=== PATIENT | female | born 1980 | race Caucasian/White ===

== ENCOUNTER 2022-06-28 11:44 | Emergency (ER) | payer BC, SELFPAY ==
--- NOTE | ~2022-06-28 | XR_ITS ---
Clinical Indication: Cough PA and lateral views of the chest: Comparison: None Findings: The lungs are clear, without evidence of focal consolidation or pleural effusion. Cardiome diastinal silhouette is within normal limits. Bones and soft tissues are unremarkable. Impression: Normal chest. Reviewed, dictated and finalized at location . Impression: Normal chest.
[2022-06-28 11:54] VITALS: BP 152/97; PULSE 70; RESP 16; TEMP 36.1; O2SAT 100
--- NOTE | 2022-06-28 12:16 | ED.GENADULT ---
HPI - General Adult General Chief complaint: Upper Respiratory Infection Stated complaint: Cold Symptoms Source: patient Mode of arrival: ambulatory Limitations: no limitations History of Present Illness HPI narrative: Patient presents for evaluation of upper respiratory symptoms. Symptom onset 4 days ago. Symptoms include sinus congestion, clear rhinorrhea, productive cough of yellow sputum, wheezing, diarrhea, body aches. No nausea, vomiting, shortness of breath. Her daughter recently had similar symptoms and was diagnosed with pneumonia. Patient does not smoke. She tried taking DayQuil for her symptoms. Related Data Home Medications Medication Instructions Recorded Confirmed citalopram 40 mg tablet mg 06/28/22 losartan 100 tablet 06/28/22 mg-hydrochlorothiazide 12.5 mg tablet norethindrone (contraceptive) 0.35 mg 06/28/22 mg tablet omeprazole 20 mg capsule,delayed mg 06/28/22 release Allergies Allergy/AdvReac Type Severity Reaction Status Date / Time Sulfa (Sulfonamide Allergy Unknown Verified 10/08/16 12:35 Antibiotics) Review of Systems Review of Systems: CONSTITUTIONAL: Denies fever, chills, or sweats. EYES: Denies visual changes, redness, or discharge. ENT: Reports sinus congestion clear rhinorrhea. CARDIOVASCULAR: Denies chest pain, palpitations, or edema. RESPIRATORY: Reports productive cough of yellow sputum and wheezing. Denies shortness of breath. GASTROINTESTINAL: Reports diarrhea. denies abdominal pain, nausea, or vomiting GENITOURINARY: Denies dysuria or hematuria. SKIN: Denies rash or itching. MUSCULOSKELETAL: Denies back pain, joint pain, or myalgia. NEUROLOGIC: Denies headache, numbness, dizziness, or weakness. PSYCHIATRIC: Denies anxiety or depression. [facility] Past Medical History Medical History (Updated 06/28/22 @ 12:59 by JESSE Burnham, FAUSTINO) No pertinent past medical history Surgical History Surgical History No pertinent past surgical history Family History Family History Mother Family history non-contributory Social History Social History Smoking status: Never smoker Substance use: never Living arrangements: with family Gender identity (if verbalized by the patient): Female Sexual Orientation (if Verbalized by the Patient): Straight or Heterosexual Spiritual care concerns: No Exam Narrative: GENERAL: Well-appearing, well-nourished, and in no acute distress. HEAD: Normocephalic, atraumatic. EYES: PERRLA and EOMI. ENT: Nares clear, no rhinorrhea or epistaxis. Mucous membranes moist. Oropharynx without tonsillar hypertrophy exudate or other lesions. Bilateral TMs pearly pena nonbulging NECK: Supple. No adenopathy or masses. No carotid bruits or JVD CHEST: Rales noted in posterior lung cisneros bilaterally HEART: Regular rate and rhythm. No murmur heard. Normal peripheral pulses. ABDOMEN: Soft, nontender, nondistended, normal active bowel sounds. EXTREMITIES: Normal range of motion. No edema. SKIN: Warm, dry, no rash. NEURO: No focal deficits. Alert and oriented x3. PSYCH: Normal mood and affect. Course Course Emergency Course: THIS IS A 41-YEAR-OLD FEMALE WHO PRESENTED FOR EVALUATION OF SICK SYMPTOMS. COVID, INFLUENZA, CHEST X-RAY NEGATIVE. EXAM WAS CONSISTENT WITH VIRAL URI. SHE DID HAVE SOME WHEEZING SO WILL BE DISCHARGED WITH PREDNISONE. MUCINEX DM [id number] FOR SYMPTOM MANAGEMENT. INCREASE HYDRATION. FOLLOW UP WITH PRIMARY PROVIDER. GO TO THE ER FOR WORSENING SYMPTOMS. PATIENT IN AGREEMENT WITH PLAN OF CARE Level of Care: Express Care Visit Vital Signs Vital signs: Vital Signs Temperature 36.1 C L 06/28/22 11:54 Pulse Rate 70 06/28/22 11:54 Respiratory Rate 16 06/28/22 11:54 Blood Pressure 152/97 H 06/28/22 11:54
== END 2022-06-28 13:03 | disposition home or self-care (01) ==
PROVIDERS: Emergency Provider Nurse Practitioner; PCP Family Medicine
DX: J06.9 Acute upper respiratory infection, unspecified (principal); Z20.822 Contact with and (suspected) exposure to COVID-19
CPT/HCPCS: 71046; 87426; 87804; 99203; C9803; G0463

== ENCOUNTER 2023-04-08 13:51 | Emergency (ER) | payer BC, SELFPAY ==
[2023-04-08 13:56] VITALS: BP 145/113; PULSE 80; RESP 16; TEMP 36.6; O2SAT 98
[2023-04-08 14:06] VITALS: BP 145/113; PULSE 80; RESP 16; TEMP 36.6; O2SAT 98
--- NOTE | 2023-04-08 15:10 | ED.GENADULT ---
HPI - General Adult General Chief complaint: Extremity Problem,Nontraumatic Stated complaint: Left Foot Pain Time Seen by Provider: 04/08/23 15:00 Source: patient, RN notes reviewed and old records reviewed Mode of arrival: ambulatory Limitations: no limitations History of Present Illness HPI narrative: 42-year-old female presents to express care with complaints of having left heel pain since yesterday morning after arising from bed. Patient reports that she has some tenderness under the laft lateral calcaneus radiating posteriorly also. Patient reports that she has had history of gout in the past and had some Indomethacin and prednisone at home and did take doses. Patient reports increased pain with ambulation, is able to flex and extend foot with no difficulty, no acute warmth or any redness to heel area or ankle. Patient denies any known injury to left foot or ankle. MD complaint: left heel and lateral ankle Onset (ago): day(s) (since yesterday) Severity scale (1-10): 2 Treatments prior to arrival: NSAID and other (prednisone) Related Data Home Medications Medication Instructions Recorded Confirmed citalopram 40 mg tablet 40 mg PO DAILY 06/28/22 04/08/23 losartan 100 1 tablet PO DAILY 06/28/22 04/08/23 mg-hydrochlorothiazide 12.5 mg tablet norethindrone (contraceptive) 0.35 0.35 mg PO DAILY 06/28/22 04/08/23 mg tablet omeprazole 20 mg capsule,delayed 20 mg PO DAILY 06/28/22 04/08/23 release Allergies Allergy/AdvReac Type Severity Reaction Status Date / Time Sulfa (Sulfonamide Allergy Intermediate Rash Verified 04/08/23 14:06 Antibiotics) Review of Systems Review of Systems: CONSTITUTIONAL: Denies fever, chills, or sweats. EYES: Denies visual changes, redness, or discharge. ENT: Denies rhinorrhea, congestion, sore throat, or otalgia. CARDIOVASCULAR: Denies chest pain, palpitations, or edema. RESPIRATORY: Denies cough or dyspnea. GASTROINTESTINAL: Denies abdominal pain, nausea, vomiting, or diarrhea. GENITOURINARY: Denies dysuria or hematuria. SKIN: Denies rash or itching. MUSCULOSKELETAL: Denies back pain,positive for left heel pain and lateral left ankle below calcaneus, or myalgia. NEUROLOGIC: Denies headache, numbness, or weakness.l PSYCHIATRIC: Denies anxiety or depression. All systems reviewed & are unremarkable except as noted in HPI and below PMFSH Past Medical History Medical History (Updated 04/10/23 @ 21:38 by Lorraine Beatty NP) GERD (gastroesophageal reflux disease) Gout Hypertension Surgical History Surgical History No pertinent past surgical history Family History Family History Mother Family history non-contributory Social History Social History (Updated 04/10/23 @ 21:32 by Lorraine Beatty NP) Smoking status: Current every day smoker Tobacco type: e-cigarettes/vaping Substance use: never Living arrangements: with family Gender identity (if verbalized by the patient): Female Sexual Orientation (if Verbalized by the Patient): Straight or Heterosexual Spiritual care concerns: No Comments At time of signature, agree with nursing past medical, surgical, social and family history. There is no relevant family history pertinent to the presenting complaint Exam Narrative: GENERAL: Well-appearing, well-nourished, obese,and in no acute distress. HEAD: Normocephalic, atraumatic. EYES: PERRLA and EOMI. ENT: Nares clear, no rhinorrhea or epistaxis. Mucous membranes moist.TM's normal throat pink with no swelling NECK: Supple. no lymphadenopathy CHEST: Clear to auscultation. No respiratory distress.SAO2 98% on room air HEART: Regular rate and rhythm. No murmur heard. Normal peripheral pulses. ABDOMEN: Soft, nontender, nondistended, normal active bowel sounds. EXTREMITIES: Normal range of motion. No edema.Exception noted to patient complaints of l
== END 2023-04-08 15:32 | disposition home or self-care (01) ==
PROVIDERS: Emergency Provider Registered Nurse; PCP Family Medicine
DX: M25.572 Pain in left ankle and joints of left foot (principal); M79.672 Pain in left foot; F17.290 Nicotine dependence, other tobacco product, uncomplicated; K21.9 Gastro-esophageal reflux disease without esophagitis; M10.9 Gout, unspecified; I10 Essential (primary) hypertension
CPT/HCPCS: 99213; G0463

== ENCOUNTER 2024-05-09 11:04 | Emergency (ER) | payer SELFPAY ==
--- NOTE | 2024-05-09 11:08 | ED_ITS ---
HPI - URI/Sore Throat General Chief Complaint: Upper Respiratory Infection Stated Complaint: Fever/Cough/Chest Congestion Time Seen by Provider: 05/09/24 11:08 Source: patient Mode of arrival: ambulatory Limitations: no limitations History of Present Illness HPI Narrative: Patient is a 43-year-old female who presents with 2 days of fever, cough, congestion for 2 days. Taken [id number] medication without relief. Denies any nausea, vomiting, diarrhea. Related Data Home Medications ?Medication ?Instructions ?Recorded ?Confirmed ?Last Taken ?Type citalopram 40 mg tablet 40 mg PO DAILY 06/28/22 05/09/24 Unknown History losartan 100 1 tablet PO DAILY 06/28/22 05/09/24 Unknown History mg-hydrochlorothiazide 12.5 mg tablet norethindrone (contraceptive) 0.35 0.35 mg PO DAILY 06/28/22 04/08/23 Unknown History mg tablet omeprazole 20 mg capsule,delayed 20 mg PO DAILY 06/28/22 05/09/24 Unknown History release allopurinol 100 mg tablet mg 05/09/24 Unknown History Allergies Allergy/AdvReac Type Severity Reaction Status Date / Time Sulfa (Sulfonamide Allergy Intermediate Rash Verified 05/09/24 11:30 Antibiotics) Review of Systems Review of Systems: All systems reviewed & are unremarkable except as noted in HPI and below Constitutional: Constitutional: Denies body ache(s), Denies chills, Denies fatigue, Reports fever(s), Denies headache(s), Denies malaise and Denies weakness Eyes: Eyes: Denies blurry vision, Denies itchy eyes and Denies loss of vision ENT: Denies otalgia, Denies headache(s), Reports nasal congestion, Denies sinus pain and Denies sore throat Cardiovascular: Cardiovascular: Denies chest pain, Denies irregular heart rhythm and Denies dyspnea Respiratory: Respiratory: Reports cough and Denies dyspnea Gastrointestinal: Gastrointestinal: Denies abdominal pain, Denies diarrhea, Denies nausea and Denies vomiting Musculoskeletal: Musculoskeletal: Denies back pain, Denies myalgias and Denies arthralgias Integumentary/Breasts: Skin/Breast: Denies pruritus and Denies rash Neurologic: Denies headache(s), Denies loss of vision and Denies weakness Psychiatric: Psychiatric: Reports no additional psychiatric complaints Endocrine: Endocrine: Denies fatigue Allergic/Immunologic: Allergic/Immunologic: Denies itchy eyes PMFSH Past Medical History Medical History (Updated 05/09/24 @ 11:42 by Jennifer Lepe APRN) GERD (gastroesophageal reflux disease) Gout Hypertension Surgical History Surgical History No pertinent past surgical history Family History Family History Mother Family history non-contributory Social History Social History (Updated 04/10/23 @ 21:32 by Lorraine Beatty NP) Smoking status: Current every day smoker Tobacco type: e-cigarettes/vaping Substance use: never Living arrangements: with family Gender identity (if verbalized by the patient): Female Sexual Orientation (if Verbalized by the Patient): Straight or Heterosexual Spiritual care concerns: No Comments At time of signature, agree with nursing past medical, surgical, social and family history. There is no relevant family history pertinent to the presenting complaint. Exam Const: General: cooperative, healthy appearing, comfortable, no acute distress and well nourished Nutritional Appearance: well nourished Orientation/consciousness: patient oriented x3 Limitations: no limitations HENMT: Head: normal to inspection, normocephalic and atraumatic Ears: hearing grossly normal bilaterally, external ears normal, TM's normal bilaterally, EAC's normal and no periauricular adenopathy Face/Nose/Sinus: Normal external nose present, Abnormal mucous membranes and turbinates present erythematous bilateral and diffuse, normal facial exam, sinuses nontender and face symmetric Face and sinus: normal facial exam, sinuses nontender and face symmetric Mouth: Yes Normal oral and palatal mucosa present, Yes lip normal, Yes tongue normal, Yes Normal salivary glands and ducts present, Yes oropharynx normal and Yes moist mucous membranes Teeth and gingiva: dentition normal Throat: posterior oropharynx normal, tonsils normal and uvula midline Eyes: General: appearance normal, both eyes and all related structures Alignment and Position: alignment normal and position normal Periorbital: periorbital findings normal Eyelids: eyelids normal Pupils: Equal, round and reactive pupils present Neck: Neck: normal visual inspection, full ROM, no lymphadenopathy and supple Chest: Chest palpation & inspection: normal inspection of the chest and normal palpation of entire chest wall Resp: Effort & Inspection: normal respiratory effort, able to speak in complete sentences and Actively coughing wet Auscultation: clear to auscultation bilaterally, no crackles, no rales, rhonchi left upper (clears with cough) and no wheezes Cardio: Rate: regular rate Rhythm: regular rhythm Heart sounds: S1 normal heart sound present and S2 normal heart sound present GI: Inspection: normal to inspection Skin: General skin exam: normal color and no rashes or lesions noted Neuro: General: patient oriented x3 and moves all extremities Cranial nerves: Yes Equal, round and reactive pupils present Speech: normal speech Gait exam (Neuro): Normal gait present Extrem: General: normal to inspection, full ROM and no edema Psych: Appearance: grossly normal and well kempt Mental Status: mental status grossly normal Speech and movement: Normal speech and movement present Affect: normal affect Attitude: cooperative Thought process: Normal thought process present Course Course Emergency Course: Discharge instructions reviewed with patient, as well as provided in writing per nursing staff. The instructions also include specific and strict return/GO TO THE ER as well as f/u information. All questions have been answered, and the patient deny any further questions with discharge and discharge plan. Portions of this record may have been created with voice recognition software Level of Care: Express Care Visit Vital Signs Vital signs: Vital Signs Temperature 36.6 C 05/09/24 11:33 Pulse Rate 87 05/09/24 11:33 Respiratory Rate 16 05/09/24 11:33 Blood Pressure 153/99 H 05/09/24 11:33 Pulse Oximetry 98 05/09/24 11:33 Oxygen Delivery Room Air 05/09/24 11:33 Temperature 36.6 C 05/09/24 11:33 Pulse Rate 87 05/09/24 11:33 Respiratory Rate 16 05/09/24 11:33 Blood Pressure 153/99 H 05/09/24 11:33 Pulse Oximetry 98 05/09/24 11:33 Oxygen Delivery Room Air 05/09/24 11:33 Reviewed MDM - URI/Sore Throat MDM Narrative Medical decision making narrative: Pt well hydrated appearing, in no respiratory distress, hemodynamically stable. Recommend supportive care. The patient is stable at time of discharge the clinical impression was discussed and the patient was given the opportunity to ask questions, which were addressed as completely as possible given the information available at present. Anticipatory guidance and return to care precautions were discussed and the importance of primary care follow-up was stressed and encouraged. The patient voiced understanding of the plan, indications to return, and the need for follow-up. Differential diagnosis considered: Garcia virus, strep pharyngitis, allergic rhinitis, upper respiratory tract infection, sinusitis, rhinosinusitis, nasopharyngitis. viral pharyngitis, otitis media, otitis externa, otitis effusion, foreign body, cerumen impaction, viral syndrome, and influenza.? Exam findings show no acute concerns or changes; patient is non-toxic appearing and is in no distress.? Patient is appropriate for outpatient treatment and follow- up.? Medical Records Attestation: I reviewed the patient's medical records. Lab Data Attestation: I reviewed the patient's lab results. Labs: Lab Results 05/09/24 Range/Units 11:54 POC Influenza A Ag Positive (Negative) POC Influenza B Ag Negative (Negative) POC SARS CoV-2 Ag Negative (Negative) Discharge Plan Discharge Clinical Impression: Influenza Patient Disposition: Home, Self-Care Condition: Stable Instructions: Influenza (ED) Additional Instructions: Your positive for influenza A Use Tessalon Perles as needed for cough. Use inhaler with spacer as needed. Other symptomatic treatments include: -Alternate Tylenol and Motrin per package directions for fever or pain. -Antihistamine medication such as Benadryl at night and Zyrtec/Claritin/Christine during the day can help improve symptoms. -Use Flonase twice a day for 5 days then daily to help reduce the inflammation and dry up your sinuses. -You can also use Sudafed or Mucinex. Be sure to drink plenty of water with these medications at least 8 ounces with every dose and it is important to drink 8 to 10 glasses of water per day. Water is a natural decongestant -Eat and drink things that are easy to swallow, like tea or soup, or popsicles. -Oral rinses such as: Salt water gargles and/or may use topical anesthetic (eg. Chloraseptic spray) or lozenges to relieve dryness or throat pain). -Frequent hand washing or hand crtts is one of the best ways to prevent spread of infection. -Using a vaporizer or humidifier at night will also help thin secretions and help with coughing up phlegm. -Follow up with primary care provider in 3-5 days if condition is not improving - For new or worsening symptoms go directly to the nearest ER Your blood pressure was elevated above 120/80 today at Urgent Care. This puts you above the threshold for follow up visit with a primary care provider. High blood pressure does not usually cause any symptoms, however it may lead to kidney failure, stroke, heart disease just to name a few if untreated . Many people are anxious when seeing a provider or nurse. As a result, you are not di agnosed with hypertension at this time unless your blood pressure is persistently high at two office visits at least one week apart. Some things that can help lower blood pressure are lifestyle modifications, such as light exercise, decreased salt in diet, and weight loss. It is important to follow up with a PCP about this within 1 week. Patient Language: Filipino Prescriptions: New (DME) Aerochamber MV Spacer See Rx Instructions .Route Qty: 1 0RF Rx Instructions: As directed benzonatate 100 mg capsule 100 mg PO BID PRN (Reason: cough) Qty: 14 0RF albuterol sulfate 90 mcg/actuation HFA aerosol inhaler 2 puff inhalation QID PRN (Reason: shortness of breath or wheezing) Qty: 6.7 0RF fluticasone propionate [Flonase Allergy Relief] 50 mcg/actuation spray,suspension 1 spray intranasal DAILY Qty: 16 0RF Rx Instructions: administer into each nostril No Action citalopram 40 mg tablet 40 mg PO DAILY omeprazole 20 mg capsule,delayed release(DR/EC) 20 mg PO DAILY norethindrone (contraceptive) 0.35 mg tablet 0.35 mg PO DAILY losartan-hydrochlorothiazide 100-12.5 mg tablet 1 tablet PO DAILY indomethacin 50 mg capsule 50 mg PO BID Qty: 30 0RF Rx Instructions: administer with food or milk prednisone 20 mg tablet 20 mg PO BID Qty: 10 0RF allopurinol 100 mg tablet Follow-up/Referrals: Hosea Andrew MD [Physician] - 3 Days (Establish care) UNKNOWN,DOCTOR [Primary Care Provider] - Stand Alone Forms: Work/School Release IP Time of Disposition: 11:43
[2024-05-09 11:33] VITALS: BP 153/99; PULSE 87; RESP 16; TEMP 36.6; O2SAT 98
[2024-05-09 11:56] LABS: EDCOVIDSCREEN Negative (Negative); EDINFLUASCREEN Positive (Negative); EDINFLUBSCREEN Negative (Negative)
== END 2024-05-09 12:10 | disposition home or self-care (01) ==
PROVIDERS: Emergency Provider Nurse Practitioner Family
DX: J10.1 Influenza due to other identified influenza virus with other respiratory manifestations (principal); Z20.822 Contact with and (suspected) exposure to COVID-19; F17.290 Nicotine dependence, other tobacco product, uncomplicated; K21.9 Gastro-esophageal reflux disease without esophagitis; I10 Essential (primary) hypertension; M10.9 Gout, unspecified
CPT/HCPCS: 87426; 87804; 99213; G0463

== ENCOUNTER 2024-12-24 12:42 | Emergency (ER) | payer BC, SELFPAY ==
[2024-12-24 12:52] VITALS: BP 130/93; PULSE 88; RESP 18; TEMP 36.5; O2SAT 99
[2024-12-24 13:06] LABS: EDSTREPNEGPOS1 Negative (Negative)
[2024-12-24 13:15] LABS: EDCOVIDSCREEN Negative (Negative); EDINFLUASCREEN Negative (Negative); EDINFLUBSCREEN Negative (Negative)
--- NOTE | 2024-12-24 13:40 | ED.GENADULT ---
HPI - General Adult General Chief complaint: Upper Respiratory Infection Stated complaint: Sore Throat/Cough Source: patient Mode of arrival: ambulatory Limitations: no limitations History of Present Illness HPI narrative: Patient presents for evaluation of sick symptoms for last 4 days. Symptoms include sinus congestion, headache, generalized body aches, sore throat. No fever, chills, nausea, vomiting. No recent sick contacts to her knowledge. She is not taking any medication to assist with her symptoms. She does vape. Related Data Home Medications ?Medication ?Instructions ?Recorded ?Confirmed ?Last Taken ?Type citalopram 40 mg tablet 40 mg PO DAILY 06/28/22 05/09/24 Unknown History losartan 100 1 tablet PO DAILY 06/28/22 05/09/24 Unknown History mg-hydrochlorothiazide 12.5 mg tablet norethindrone (contraceptive) 0.35 0.35 mg PO DAILY 06/28/22 04/08/23 Unknown History mg tablet omeprazole 20 mg capsule,delayed 20 mg PO DAILY 06/28/22 05/09/24 Unknown History release allopurinol 100 mg tablet mg 05/09/24 Unknown History Allergies Allergy/AdvReac Type Severity Reaction Status Date / Time Sulfa (Sulfonamide Allergy Intermediate Rash Verified 12/24/24 12:54 Antibiotics) Review of Systems Review of Systems: CONSTITUTIONAL: Denies fever, chills, or sweats. EYES: Denies visual changes, redness, or discharge. ENT: Reports sinus congestion, nasal drainage and sore throat CARDIOVASCULAR: Denies chest pain, palpitations, or edema. RESPIRATORY: Denies cough or dyspnea. GASTROINTESTINAL: Denies abdominal pain, nausea, vomiting, or diarrhea. GENITOURINARY: Denies dysuria or hematuria. SKIN: Denies rash or itching. MUSCULOSKELETAL: Reports generalized body aches NEUROLOGIC: Reports headache. Denies numbness, dizziness, or weakness. PSYCHIATRIC: Denies anxiety or depression. [facility] Past Medical History Medical History GERD (gastroesophageal reflux disease) Gout Hypertension Surgical History Surgical History No pertinent past surgical history Family History Family History Mother Family history non-contributory Social History Social History Smoking status: Current every day smoker Tobacco type: e-cigarettes/vaping Substance use: never Living arrangements: with family Gender identity (if verbalized by the patient): Female Sexual Orientation (if Verbalized by the Patient): Straight or Heterosexual Spiritual care concerns: No Exam Narrative: GENERAL: Well-appearing, well-nourished, and in no acute distress. HEAD: Normocephalic, atraumatic. EYES: PERRLA and EOMI. ENT: Nares clear, no rhinorrhea or epistaxis. Mucous membranes moist. Oropharynx without tonsillar hypertrophy exudate or other lesions. Bilateral TMs pearly pena nonbulging NECK: Supple. No adenopathy or masses. No carotid bruits or JVD CHEST: Clear to auscultation. No respiratory distress. No wheezes rales or rhonchi HEART: Regular rate and rhythm. No murmur heard. Normal peripheral pulses. ABDOMEN: Soft, nontender, nondistended, normal active bowel sounds. EXTREMITIES: Normal range of motion. No edema. SKIN: Warm, dry, no rash. NEURO: No focal deficits. Alert and oriented x3. PSYCH: Normal mood and affect. Course Course Emergency Course: This is a 44-year-old female who presented for evaluation of sick symptoms. COVID, flu, strep were all negative. Will send throat culture. Through shared decision making opted proceed with Augmentin. Increase hydration. [id number] agents for symptom management. Follow up with primary provider. Go to the ER for worsening symptoms. Patient in agreement with plan of care. Level of Care: Express Care Visit Vital Signs Vital signs: Vital Signs Temperature 36.5 C 12/24/24 12:52 Pulse Rate 88 12/24/24 12:52 Respiratory Rate 18 12/24/24 12:52 Blood Pressure 130/93 H 12/24/24 12:52 Pulse Oximetry 99 12/24/24 12:52 Oxygen Delivery Room Air 12/24/24 12:52 Temperature 36.5 C 12/24/24 12:52 Pulse Rate 88 12/24/24 12:52 Respiratory Rate 18 12/24/24 12:52 Blood Pressure 130/93 H 12/24/24 12:52 Pulse Oximetry 99 12/24/24 12:52 Oxygen Delivery Room Air 12/24/24 12:52 Medical Decision Making Vital Signs Vital Signs: Vital Signs Temperature 36.5 C 12/24/24 12:52 Pulse Rate 88 12/24/24 12:52 Respiratory Rate 18 12/24/24 12:52 Blood Pressure 130/93 H 12/24/24 12:52 Pulse Oximetry 99 12/24/24 12:52 Oxygen Delivery Room Air 12/24/24 12:52 Temperature 36.5 C 12/24/24 12:52 Pulse Rate 88 12/24/24 12:52 Respiratory Rate 18 12/24/24 12:52 Blood Pressure 130/93 H 12/24/24 12:52 Pulse Oximetry 99 12/24/24 12:52 Oxygen Delivery Room Air 12/24/24 12:52 Lab Data Labs: Lab Results 12/24/24 12/24/24 Range/Units 13:04 13:14 POC Influenza A Ag Negative (Negative) POC Influenza B Ag Negative (Negative) POC SARS CoV-2 Ag Negative (Negative) POC Grp A Strep Screen Negative (Negative) Discharge Plan Discharge Clinical Impression: Pharyngitis Patient Disposition: Home Condition: Stable Instructions: Antibiotic Form, Pharyngitis (ED) Patient Language: Burmese Prescriptions: New amoxicillin-pot clavulanate 875-125 mg tablet 1 tablet PO Q12H Qty: 20 0RF No Action citalopram 40 mg tablet 40 mg PO DAILY omeprazole 20 mg capsule,delayed release(DR/EC) 20 mg PO DAILY norethindrone (contraceptive) 0.35 mg tablet 0.35 mg PO DAILY losartan-hydrochlorothiazide 100-12.5 mg tablet 1 tablet PO DAILY allopurinol 100 mg tablet Follow-up/Referrals: Cinda Atkinson, RN [Primary Care Provider, Nursing] Stand Alone Forms: Work/School Release IP Time of Disposition: 13:12
--- OUTSIDE RECORDS SUMMARY | 2024-12-24 14:02 | XMS_ITS | Encounter Summary ---
Author Organization [facility] Address [address] [address] Phone Care Team Providers Care Laboratory Technology Teacher Name Role Phone Cinda Atkinson REGISTERED RESPIRATORY TECHNICIAN, WEB SIZER Primary Care Provider + Reason for Visit * Reason Comments Medication Refill Encounter Details Date Type Department Care Team (Late st Contact Info) Description 12/21/2024 Refill [facility] [address] [place] [address] Cinda Atkinson, REGISTERED RESPIRATORY TECHNICIAN, WEB SIZER [address] [place] [address] Medication Refill Social History Tobacco Use Types Packs/Day Years Used Date Smoking Tobacco: Never Smokeless Tobacco: Never Alcohol Use Standard Drinks/Week Comments Yes 0 (1 standard drink = 0.6 oz pur e alcohol) PHQ-2 Answer Date Recorded Total Score - Questions 1-9 0 08/0 11/2021 Education Answer Date Recorded What is the highest level of school you have completed or the highest degree you have received? Associate degree: academic program 05/23/2022 Sexually Active Control Partners Comments Yes Comments No Sex and Gender Information Value Date Recorded Sex Assigned at Female 04/25/2023 3:59 PM FURNACE BUILDER Legal Sex Female 5:41 PM CDT Gender Identity Female 04/25/2023 3:59 PM FURNACE BUILDER Sexual Orientation Not on file documented as of this encounter Miscellaneous Notes * Telephone Encounter - Magaly Mcqueen RN - 12/23/2024 8:35 AM CDT Medication failed the protocol, provider to review and approve the medication order if appropriate. Requested Prescriptions Pending Prescriptions Disp Refills citalopram (CeleXA) 40 MG Tablet [Pharmacy Med Name: CITALOPRAM 40MG TABLETS] 90 Tablet 0 Sig: Take 1 Tablet by mouth daily. Citalopram (Celexa) (6 Month Refill Only) Protocol Failed - 12/23/2024 8:35 AM Failed - Visit with relevant provider in past 6 months or upcoming 90 days Recent Visits No visits were found meeting these conditions. Showing recent visits within past 182 days and meeting all other requirements Future Appointments No visits were found meeting these conditions. Showing future appointments within next 90 days and meeting all other requirements Failed - Has an encounter in the past 6 months with a depression, anxiety, adjustment disorder, OCD, or PTSD visit diagnosis Passed - No test in the past 12 months or most recent test was negative Passed - No active on record Passed - Citalopram dose is less than or equal to 40mg / day Passed - Patient has established therapy with Citalopram for at least 6 months documented in this encounter Plan of Treatment Not on file documented as of this encounter Visit Diagnoses Diagnosis Anxiety Anxiety state, unspecified documented in this encounter Additional Health Concerns Assessment Noted Time PHQ-9 Depression Total Score: 1 04/29/19 21 12:00 PM FURNACE BUILDER documented as of this encounter Care Teams Laboratory Technology Teacher Relationship Specialty Start Date End Date Cinda Atkinson, REGISTERED RESPIRATORY TECHNICIAN, WEB SIZER [address] [place] [address] PCP - General Advanced Practice Nurse 06/27/23 documented as of this encounter
--- OUTSIDE RECORDS SUMMARY | 2024-12-24 14:02 | XMS_ITS | Encounter Summary ---
Author Organization [facility] Address [address] [place] [address] Phone Care Team Providers Care Diffuser Operator Name Role Phone Ladi Love MD Primary Care Provider [phone] Cinda Atkinson APRN, CIGARETTE VENDOR Primary Care Provider + Reason for Visit * Reason Comments Medication Refill Encounter Details Date Type Department Care Team (Late st Contact Info) Description 11/14/2022 Refill [facility] Family Medicine [facility] [address] [place] [address] [place] [address] [place] [address] Medication Refill Social History Tobacco Use Types Packs/Day Years Used Date Smoking Tobacco: Never Smokeless Tobacco: Never Alcohol Use Standard Drinks/Week Comments Yes 0 (1 standard drink = 0.6 oz pur e alcohol) PHQ-2 Answer Date Recorded Total Score - Questions 1-9 0 11/2021 Education Answer Date Recorded What is the highest level of school you have completed or the highest degree you have received? Associate degree: academic program 05/23/2022 Sexually Active Control Partners Comments Yes Comments No Sex and Gender Information Value Date Recorded Sex Assigned at Female 04/25/2023 3:59 PM NUCLEAR REACTOR TECHNICIAN Legal Sex Female 5:41 PM CDT Gender Identity Female 04/25/2023 3:59 PM NUCLEAR REACTOR TECHNICIAN Sexual Orientation Not on file documented as of this encounter Miscellaneous Notes * Telephone Encounter - Magaly Mcqueen RN - 11/14/2022 5:38 PM CDT Medication warning Per nursing clinical judgement, provider to review and approve the medication(s) order(s) if appropriate. Requested Prescriptions Pending Prescriptions Disp Refills citalopram (CeleXA) 40 MG Tablet [Pharmacy Med Name: CITALOPRAM 40MG TABLETS] 30 Tablet 5 Sig: TAKE 1 TABLET BY MOUTH DAILY Citalopram (Celexa) (6 Month Refill Only) Protocol Passed - 11/14/2022 11:42 AM Passed - No test in the past 12 months or most recent test was negative Passed - No active on record Passed - Citalopram dose is less than or equal to 40mg / day Passed - Visit with relevant provider in past 6 months or upcoming 90 days Recent Visits Date Type Provider Dept 09/21/22 Office Visit Akin Enrique APRN, [facility] 05/24/22 Office Visit [facility]adi [facility] Showing recent visits within past 182 days and meeting all other requirements Future Appointments No visits were found meeting these conditions. Showing future appointments within next 90 days and meeting all other requirements Passed - Patient has established therapy with Citalopram for at least 6 months Passed - Has an encounter in the past 6 months with a depression, anxiety, adjustment disorder, OCD, or PTSD visit diagnosis documented in this encounter Plan of Treatment Not on file documented as of this encounter Visit Diagnoses Not on filedocumented in this encounter Additional Health Concerns Assessment Noted Time PHQ-9 Depression Total Score: 1 04/29/19 21 12:00 PM NUCLEAR REACTOR TECHNICIAN documented as of this encounter Care Teams Diffuser Operator Relationship Specialty Start Date End Date Ladi Love MD PCP - General Family Medicine 10/15/15 06/26/23 Cinda Atkinson APRN, CIGARETTE VENDOR [address] [place] [address] PCP - General Advanced Practice Nurse 06/27/23 documented as of this encounter
--- OUTSIDE RECORDS SUMMARY | 2024-12-24 14:02 | XMS_ITS | Encounter Summary ---
Author Organization [facility] Address [address] [place] [address] Phone Care Team Providers Care Medical Service Representative Name Role Phone Cinda Atkinson DENTAL SALES REPRESENTATIVE, ARTICULATION OFFICER Primary Care Provider + Reason for Visit * Reason Comments Medication Refill Encounter Details Date Type Department Care Team (Late st Contact Info) Description 07/05/2024 Refill [facility] [address] [place] [address] Cinda Atkinson, DENTAL SALES REPRESENTATIVE, ARTICULATION OFFICER [address] [place] [address] Medication Refill Social History Tobacco Use Types [...] Sex Assigned at Female 04/25/2023 3:59 PM PERSONAL LINES AGENT Legal Sex Female 5:41 PM CDT Gender Identity Female 04/25/2023 3:59 PM PERSONAL LINES AGENT Sexual Orientation Not on file documented as of this encounter Plan of Treatment Not on file documented as of this encounter Visit Diagnoses Diagnosis Gout of multiple sites, unspecified cause, unspecified chronicity documented in this encounter Additional Health Concerns Assessment Noted Time PHQ-9 Depression Total Score: 1 04/29/19 21 12:00 PM PERSONAL LINES AGENT documented as of this encounter Care Teams Medical Service Representative Relationship Specialty Start Date End Date Cinda Atkinson, DENTAL SALES REPRESENTATIVE, ARTICULATION OFFICER [address] [place] [address] PCP - General Advanced Practice Nurse 06/27/23 documented as of this encounter
--- OUTSIDE RECORDS SUMMARY | 2024-12-24 14:02 | XMS_ITS | Encounter Summary ---
Author Organization [facility] Address [address] [place] [address] Phone Care Team Providers Care Loss Prevention Research Engineer Name Role Phone Cinda Atkinson ROOM SERVER, CHEMICAL PUMPER Primary Care Provider + Reason for Visit * Reason Comments Medication Refill Encounter Details Date Type Department Care Team (Late st Contact Info) Description 01/25/2024 Refill [facility] - Family Medicine - [place] [address] [place] [address] Cinda Atkinson, ROOM SERVER, CHEMICAL PUMPER [address] [place] [address] Medication Refill Social History Tobacco Use Types [...] Sex Assigned at Female 04/25/2023 3:59 PM PLATE WASHER Legal Sex Female 5:41 PM CDT Gender Identity Female 04/25/2023 3:59 PM PLATE WASHER Sexual Orientation Not on file documented as of this encounter Miscellaneous Notes * Telephone Encounter - Magaly Mcqueen RN - 01/26/2024 9:30 AM CDT Images from the original note were not included. Citalopram Hydrobromide Dispensed Days Supply Quantity Provider Pharmacy CITALOPRAM 40MG TABLETS 12/26/2023 90 90 Each Cinda Atkinson APRN, CNP [facility] #... documented in this encounter Plan of Treatment Not on file documented as of this encounter Visit Diagnoses Diagnosis Anxiety Anxiety state, unspecified documented in this encounter Additional Health Concerns Assessment Noted Time PHQ-9 Depression Total Score: 1 04/29/19 21 12:00 PM PLATE WASHER documented as of this encounter Care Teams Loss Prevention Research Engineer Relationship Specialty Start Date End Date Cinda Atkinson APRN, JULES [address] [place] [address] PCP - General Advanced Practice Nurse 06/27/23 documented as of this encounter
--- OUTSIDE RECORDS SUMMARY | 2024-12-24 14:02 | XMS_ITS | Encounter Summary ---
Author Organization [facility] Address [address] [place] [address] Phone Care Team Providers Care Magazine Grinder Loader Name Role Phone Ladi Love MD Primary Care Provider [phone] Cinda Atkinson APRN, CUSTOM FEED MILL OPERATOR Primary Care Provider + Reason for Visit * Reason Comments Medication Refill Encounter Details Date Type Department Care Team (Late st Contact Info) Description 04/19/2023 Refill [facility] Family Medicine [facility] [address] [place] [address] [place] [address] [place] [address] Medication Refill Social History Tobacco Use Types [...] Sex Assigned at Female 04/25/2023 3:59 PM TAX COMPLIANCE MANAGER Legal Sex Female 5:41 PM CDT Gender Identity Female 04/25/2023 3:59 PM TAX COMPLIANCE MANAGER Sexual Orientation Not on file documented as of this encounter Miscellaneous Notes * Telephone Encounter - Sarita Daniels RN - 04/19/2023 12:48 PM TAX COMPLIANCE MANAGER Per nursing clinical judgement, provider to review and approve the medication(s) order(s) if appropriate. Requested Prescriptions Pending Prescriptions Disp Refills omeprazole (PriLOSEC) 20 MG CAPSULE DELAYED RELEASE [Pharmacy Med Name: OMEPRAZOLE 20MG CAPSULES] 30 Capsule 2 Sig: TAKE 1 CAPSULE BY MOUTH DAILY Proton Pump Inhibitors Protocol Passed - 04/19/2023 12:15 PM Passed - No positive test in the past 12 months or most recent test was negative Passed - Visit with relevant provider in past 12 months or upcoming 90 days Recent Visits Date Type Provider Dept 09/21/22 Office Visit Akin Enrique APRN, [facility] 05/24/22 Office Visit Ladi Love MD [facility] Showing recent visits within past 365 days and meeting all other requirements Future Appointments Date Type Provider Dept 04/25/23 Appointment Cinda Atkinson APRN, [facility] Showing future appointments within next 90 days and meeting all other requirements Passed - No active on record COMPLIANCE MANAGER documented in this encounter Plan of Treatment Not on file documented as of this encounter Visit Diagnoses Not on filedocumented in this encounter Additional Health Concerns Assessment Noted Time PHQ-9 Depression Total Score: 1 04/29/19 21 12:00 PM TAX COMPLIANCE MANAGER documented as of this encounter Care Teams Magazine Grinder Loader Relationship Specialty Start Date End Date Ladi Love MD PCP - General Family Medicine 10/15/15 06/26/23 Cinda Atkinson APRN, CUSTOM FEED MILL OPERATOR [address] [place] [address] PCP - General Advanced Practice Nurse 06/27/23 documented as of this encounter
--- OUTSIDE RECORDS SUMMARY | 2024-12-24 14:02 | XMS_ITS | Encounter Summary ---
Author Organization [facility] Address [address] [facility] [place] [address] Phone Care Team Providers Care Chartered Accountant Name Role Phone Cinda Atkinson APRN, SAWMILL WORKER Primary Care Provider + Reason for Visit * Reason Comments Medication Refill Encounter Details Date Type Department Care Team (Late st Contact Info) Description 06/30/2023 Refill [facility] - [facility] Medicine - [place] [address] [place] [address] Delmi Lopez APRN, SAWMILL WORKER [address] [address] Medication Refill Social History Tobacco Use Types [...] Sex Assigned at Female 04/25/2023 3:59 PM PREFORMING MACHINE OPERATOR Legal Sex Female 5:41 PM CDT Gender Identity Female 04/25/2023 3:59 PM PREFORMING MACHINE OPERATOR Sexual Orientation Not on file documented as of this encounter Miscellaneous Notes * Telephone Encounter - Magaly Mcqueen RN - 06/30/2023 4:24 PM CDT Medication failed the protocol, provider to review and approve the medication order if appropriate. Requested Prescriptions Pending Prescriptions Disp Refills citalopram (CeleXA) 40 MG Tablet [Pharmacy Med Name: CITALOPRAM 40MG TABLETS] 90 Tablet 0 Sig: TAKE 1 TABLET BY MOUTH DAILY Citalopram (Celexa) (6 Month Refill Only) Protocol Failed - 06/30/2023 4:22 PM Failed - Has an encounter in the [...] days Recent Visits Date Type Provider Dept 06/27/23 Office Visit Cinda Atkinson APRN, [facility] Showing recent visits within past 182 days and meeting all other requirements Future Appointments Date Type Provider Dept 07/03/23 Appointment Cinda Atkinson APRN, CNP [facility] Showing future appointments within next 90 days and meeting all other requirements Passed - Patient has established therapy with Citalopram for at least 6 months documented in this encounter Plan of Treatment Not on file documented as of this encounter Visit Diagnoses Not on filedocumented in this encounter Additional Health Concerns Assessment Noted Time PHQ-9 Depression Total Score: 1 04/29/19 21 12:00 PM PREFORMING MACHINE OPERATOR documented as of this encounter Care Teams Chartered Accountant Relationship Specialty Start Date End Date Cinda Atkinson APRN, SAWMILL WORKER [address] [place] [address] PCP - General Advanced Practice Nurse 06/27/23 documented as of this encounter
--- OUTSIDE RECORDS SUMMARY | 2024-12-24 14:02 | XMS_ITS | Encounter Summary ---
Author Organization [facility] Address [address] [place] [address] Phone Care Team Providers Care Worm Picker Name Role Phone Cinda Atkinson STERILE PREPARATION TECHNICIAN, CAD DETAILER Primary Care Provider + Reason for Visit * Reason Comments Medication Refill Encounter Details Date Type Department Care Team (Late st Contact Info) Description 12/12/2024 Refill [facility] - Family [facility] [address] [place] [address] Cinda Atkinson, STERILE PREPARATION TECHNICIAN, CAD DETAILER [address] [place] [address] Medication Refill Social History Tobacco Use Types [...] Sex Assigned at Female 04/25/2023 3:59 PM SPECIALTY MOLDER Legal Sex Female 5:41 PM CDT Gender Identity Female 04/25/2023 3:59 PM SPECIALTY MOLDER Sexual Orientation Not on file documented as of this encounter Miscellaneous Notes * Telephone Encounter - Clarence Jhaveri - 12/12/2024 3:28 PM CDT Called pt to schedule. No answer, left voicemail. * Telephone Encounter - Magaly Mcqueen RN - 12/12/2024 3:24 PM CDT Needs OV * Telephone Encounter - Magaly Mcqueen RN - 12/12/2024 3:23 PM CDT Medication failed the protocol, provider to review and approve the medication order if appropriate. Requested Prescriptions Pending Prescriptions Disp Refills allopurinol (ZYLOPRIM) 100 MG Tablet [Pharmacy Med Name: ALLOPURINOL 100MG TABLETS] 30 Tablet 0 Sig: TAKE 1 TABLET BY MOUTH DAILY Gout Agents Protocol Failed - 12/12/2024 3:23 PM Failed - Uric acid on record in past 12 months URIC ACID Date Value Ref Range Status 04/26/2023 8.0 (H) 2.5 - 6.2 mg/dL Final Failed - Visit with relevant provider in past 12 months or upcoming 90 days Recent Visits No visits were found meeting these conditions. Showing recent visits within past 365 days and meeting all other requirements Future Appointments No visits were found meeting these conditions. Showing future appointments within next 90 days and meeting all other requirements Failed - Serum creatinine on record in past 12 months CREATININE, BLOOD Date Value Ref Range Status 04/26/2023 0.76 0.60 - 1.00 mg/dL Final documented in this encounter Plan of Treatment Not on file documented as of this encounter Visit Diagnoses Diagnosis Gout of multiple sites, unspecified cause, unspecified chronicity documented in this encounter Additional Health Concerns Assessment Noted Time PHQ-9 Depression Total Score: 1 04/29/19 21 12:00 PM SPECIALTY MOLDER documented as of this encounter Care Teams Worm Picker Relationship Specialty Start Date End Date Cinda Atkinson, STERILE PREPARATION TECHNICIAN, CAD DETAILER [address] [place] [address] PCP - General Advanced Practice Nurse 06/27/23 documented as of this encounter
--- OUTSIDE RECORDS SUMMARY | 2024-12-24 14:02 | XMS_ITS | Clinical Summary ---
Author Organization [facility] Address [address] [address] [place] [address] Phone Care Team Providers Care Tortilla Maker Name Role Phone Cinda Atkinson MEDIUM CYCLE SALESPERSON, COMMUNICATION ANALYST Primary Care Provider + Allergies Active Allergy Reactions Criticality Noted Date Comments Sulfa Antibiotics Hives,Shortness of Breath,Hallucinations Several family members are allergic and was told she has a very high chance as well Medications Norethin-Eth Estrad-Fe Biphas 1 MG-10 MCG / 10 MCG Tablet 11/30/19 17 Active tirzepatide-we ight management (Zepbound) 2.5 MG/0.5ML Solution Auto-injectorI ndications:BMI 45.0-49.9, adult (HCC) 2.5 mg by Subcutaneous route once a week. 2 mL 1 06/27/19 24 Active Additional Information Patient not taking.Reported on 08/25/2023 triamcinolone (KENALOG) 0.1 % CreamIndicatio ns:Dermatitis Application Site: Apply to affected area twice daily for ten days 45 g 09/13/19 24 Active thiamine (VITAMIN B1) 100 MG TabletIndicati ons:Alcohol dependence with unspecified alcohol-induce d disorder Take 1 Tablet by mouth daily. 30 Tablet 09/13/19 24 Active chlordiazePOXI DE (LIBRIUM) 25 MG CapsuleIndicat ions:Alcohol dependence with unspecified alcohol-induce d disorder Take 1 Capsule by mouth 3 times daily as needed for Withdrawal. 15 Capsule 09/13/19 24 Active naltrexone (DEPADE) 50 MG TabletIndicati ons:Alcohol dependence with unspecified alcohol-induce d disorder TAKE 1 TABLET BY MOUTH DAILY 30 Tablet 2 10/10/19 24 Active folic acid (FOLVITE) 1 MG TabletIndicati ons:Alcohol dependence with unspecified alcohol-induce d disorder TAKE 1 TABLET BY MOUTH DAILY 30 Tablet 2 10/10/19 24 Active losartan-hydro chlorothiazide (HYZAAR) 100-12.5 MG Tablet TAKE 1 TABLET BY MOUTH DAILY 90 Tablet 3 07/08/19 25 Active omeprazole (PriLOSEC) 20 MG CAPSULE DELAYED RELEASEIndicat ions:Gastroeso phageal reflux disease, unspecified whether esophagitis present TAKE 1 CAPSULE BY MOUTH DAILY 90 Capsule 1 07/23/19 25 Active allopurinol (ZYLOPRIM) 100 MG TabletIndicati ons:Gout of multiple sites, unspecified cause, unspecified chronicity Take 1 Tablet by mouth daily. 90 Tablet 09/25/19 25 Active citalopram (CeleXA) 40 MG TabletIndicati ons:Anxiety TAKE 1 TABLET BY MOUTH DAILY 90 Tablet 12/24/19 25 Active citalopram (CeleXA) 40 MG TabletIndicati ons:Anxiety Take 1 Tablet by mouth daily. 90 Tablet 09/25/19 25 025 Discontinued Active Problems Problem Noted Date Diagnosed Date Gout 04/27/2023 Essential hypertension 11/22/2021 BMI 40.0-44.9, adult 03/24/2021 Anxiety 10/15/2015 Endometriosis 10/15/2015 Gastroesophageal reflux disease 10/15/2015 Irritable bowel syndrome with diarrhea 6 Encounters Date Type Department Care Team Description 12/21/2024 [facility] [place] [address] Cinda Atkinson APRN, JULES Medication Refill 12/12/2024 [facility] [place] [address] Brown, Cinda M, MEDIUM CYCLE SALESPERSON, COMMUNICATION ANALYST Medication Refill 09/24/2024 MyChart RX Renewal [facility] [place] [facility] [address] [place] [address] Cinda Atkinson, MEDIUM CYCLE SALESPERSON, COMMUNICATION ANALYST Medication Renewal Declined from Last 3 Months Immunizations Immunization Administration Dates Next Due Covid-19, Mrna, Lnp-s, PF, 1 00 mcg/0.5 mL Dose (Moderna) 06/11/2020 DTP Vaccine 07/29/1987, 4,1982,1982,1982 Influenza Vaccine 01/30/2015 Influenza Vaccine, Quadrivalent, PF 12/11/2020,04/29/2020,02/09/2018,2015 Influenza, Injectable, Mdck,quadrivalent,with Preservative 02/04/2019 Influenza, Seasonal, Injecta ble, Undefined 01/28/2014 MMR Vaccine 08/08/1991,10/26/1983 OPV 07/29/1987, 4,1982,1982,1982 PUR TDAP 7+ YRS IM 10/29/2015 TB Skin Test 10/21/2015 TDAP Vaccine 03/26/2021,10/29/2015 Family History Medical History Relation Name Comments Cancer Mother Relation Name Status Comments Father Alive Mother Alive Social History Tobacco Use Types Packs/Day Years Used Date Smoking Tobacco: Never Smokeless Tobacco: Never Tobacco Cessation:Counseling Given: Not Answered Alcohol Use Standard Drinks/Week Comments Yes 0 [...] Sex Assigned at Female 04/25/2023 3:59 PM SALES ASSISTANT DISPLAYS Legal Sex Female 5:41 PM CDT Gender Identity Female 04/25/2023 3:59 PM SALES ASSISTANT DISPLAYS Sexual Orientation Not on file Last Filed Vital Signs Vital Sign Reading Time Taken Comments Blood Pressure 130/90 09/13/2023 1:23 PM CDT Pulse 83 09/13/2023 1:23 PM CDT Temperature 36.6 C (97.9 F) 09/13/2023 1:23 PM CDT Respiratory Rate 18 09/13/2023 1:23 PM CDT Oxygen Saturation 98% 09/13/2023 1:23 PM CDT Inhaled Oxygen Concentration - - Weight 116.4 kg (256 lb 9.6 oz) 09/13/2023 1:23 PM CDT Height 160 cm (5' 3) 09/13/2023 1:23 PM CDT Body Mass Index 45.45 09/13/2023 1:23 PM CDT Plan of Treatment Health Maintenance Due Date Last Done Comments Hepatitis B Immunization (1 of 3 - 19+ 3-dose series) 2001 Human Papillomavirus (HPV) Immunization (1 - 3-dose SCDM series) 2009 Influenza Immunization (#1) 2024 12/0 11/2020, 04/29/2020, 02/04/2019, Additional history exists SARS-COV-2 Immunization ( - 2024- season) 2024 07/09/2020, 06/11/2020 Mammogram 03/11/2025 03/11/2024 Pap Smear 08/24/2026 08/25/2023, 06/11/2019 Cervical Cancer Screening (CCS) 08/24/2028 HPV/Cotest 08/24/2028 08/25/2023 DTaP/Tdap/Td Immunization (9 - Td or Tdap) 03/26/2031 03/26/2021, 10/29/2015, 10/29/2015, Additional history exists Td Immunization Every 10 Years (Adults With 1 Tdap) 03/26/2031 03/26/2021, 10/29/2015, 10/29/2015 Respiratory Syncytial Virus (RSV) Immunization (Adult) (1 - 1-dose 75+ series) 2057 Hepatitis C Virus (HCV) Screening Completed 10/27/2020 Discussion re Starting/Frequency of Mammograms Completed 03/11/2024 Meningococcal Immunization (ACWY) Aged Out No longer eligible based on patient's age to complete this topic Pneumococcal Immunization Combined Aged Out No longer eligible based on patient's age to complete this topic Rotavirus Immunization Aged Out No lo nger eligible based on patient's age to complete this topic Procedures Procedure Name Priority Date/Time Associated Diagnosis Comments ERWIN SCREENING BILATERAL DIGITAL W CAD W JERAD Routine 03/11/2024 3:07 PM SALES ASSISTANT DISPLAYS Visit for screening mammogram HUMAN PAPILLOMA VIRUS (HPV) Routine 08/25/2023 4:54 PM CDT Pap smear for cervical cancer screening Encounter for well woman exam with routine gynecological exam PATHOLOGY CYTOLOGY PERIOPERATIVE EDUCATOR Routine 08/25/2023 4:54 PM CDT Pap smear for cervical cancer screening Encounter for well woman exam with routine gynecological exam from Last 3 Months or Most Recently Relevant to Health Maintenance Results * ERWIN SCREENING BILATERAL DIGITAL W CAD W JERAD (03/11/2024 3:07 PM SALES ASSISTANT DISPLAYS) Anatomical Region Laterality Modality breast Bilateral Mammography 03/11/2024 3:21 PM SALES ASSISTANT DISPLAYS Narrative 03/13/2024 10:02 AM SALES ASSISTANT DISPLAYS - ERWIN SCREENING BILATERAL DIGITAL W CAD W JERAD BILATERAL DIGITAL SCREENING MAMMOGRAM 3D/2D WITH CAD WITH MEDIOLATERAL OBLIQUE CRANIOCAUDAL: 03/11/2024 The study was acquired using digital technology and interpreted from soft copy. Current study was also evaluated with ICAD version 7.2. 2D digital mammographic views, as well as 3D digital tomosynthesis were performed in the CC and MLO projections. CLINICAL: Baseline screening. Patient has no complaints. No personal history of cancer. No family history of breast cancer. COMPARISONS: No prior exams were available for comparison. BREAST TISSUE:The breasts are almost entirely fatty. FINDINGS: No significant masses, calcifications, or other findings are seen in either breast. IMPRESSION: NEGATIVE There is no mammographic evidence of malignancy. A 1 year screening mammogram is recommended. A letter will be sent to the patient with these results. The patient will be entered into a reminder system with a target due date of 1 year for her next screening exam. Electronically signed by: Norma dow/cliff:03/12/2024 20:40:51 Tissue Technician(s): RT Tanna(R)(M), [facility] letter sent: Normal Exam Reading location: [facility] Mammogram BI-RADS: Category 1: Negative Procedure Note Norma Miller MD - 03/13/2024 - ERWIN SCREENING BILATERAL DIGITAL W CAD W JERAD BILATERAL DIGITAL SCREENING MAMMOGRAM 3D/2D WITH CAD WITH MEDIOLATERAL OBLIQUE CRANIOCAUDAL: 03/11/2024 The study was acquired using digital technology and interpreted from soft copy. Current study was also evaluated with ICAD version 7.2. 2D digital mammographic views, as well as 3D digital tomosynthesis were performed in the CC and MLO projections. CLINICAL: Baseline screening. Patient has no complaints. No personal history of cancer. No family history of breast cancer. COMPARISONS: No prior exams were available for comparison. BREAST TISSUE:The breasts are almost entirely fatty. FINDINGS: No significant masses, calcifications, or other findings are seen in either breast. IMPRESSION: NEGATIVE There is no mammographic evidence of malignancy. A 1 year screening mammogram is recommended. A letter will be sent to the patient with these results. The patient will be entered into a reminder system with a target due date of 1 year for her next screening exam. Electronically signed by: Norma Miller M.D. ab/penalba:03/12/2024 20:40:51 Tissue Technician(s): RT Tanna(R)(M), [facility] letter sent: Normal Exam Reading location: [facility] Mammogram BI-RADS: Category 1: Negative us Ladi Love MD IMG MAMMO ORDERABLES Final Result * PATHOLOGY CYTOLOGY PERIOPERATIVE EDUCATOR (08/25/2023 4:54 PM CDT) SPECIMEN ADEQUACY Satisfactory for evaluation. Endocervical/transf ormation zone component is absent. 09/01/2023 9:49 AM CDT [facility] DESCRIPTIVE DIAGNOSIS NEGATIVE FOR INTRAEPITHELIAL LESIONS OR MALIGNANCY. 09/01/2023 9:49 AM CDT [facility] at 0948 CDT OTHER FINDINGS Predominance of coccobacilli present consistent with shift in vaginal nubia. 09/01/2023 9:49 AM CDT [facility] Automated Examination Analysis of this sample has been assisted by an automated imaging and review system (Floxxprep Imaging System, [employer], [place], [place]). This case is further evaluated and finalized by a customer relations representative and/or pathologist. 09/01/2023 9:49 AM CDT [facility] Disclaimer The PAP smear is a screening test designed to detect cancerous or precancerous cells of the uterine cervix. It is one of the best means available for detection of cervical cancer but still carries an inherent false-negative rate. The consequences of a false-negative PAP result can be minimized by adhering to current screening guidelines. The following are general guidelines recommended by the ACS, ASCP, ASCCP, and ACOG: PAP testing is recommended every three years for women 21-29, Co-Testing, a PAP test in conjunction with an HPV (Human Papillomavirus) test for women ages 30-65, and no PAP or HPV testing for women under the age of 21 or older than 65 unless clinically indicated. 09/01/2023 9:49 AM CDT [facility] Case Report Gynecologic Cytology Report Case: [id number] Authorizing Provider: Cinda Atkinson APRN, CNP Collected: 08/25/2023 04:54 PM Ordering Location: [facility] Received: 08/25/2023 04:55 PM [facility] Screen: [place] Hobbs Specimen: TP Screen, Cervix/Endocervix 09/01/2023 9:49 AM CDT [facility] Other CERVIX UTERI STRUCTURE / Unknown Non-Phlebotomy Collection / Unknown 08/25/2023 4:54 PM CDT 08/25/2023 4:55 PM CDT us Cinda Atkinson APRN, CNP PATHOLOGY/CYTOLOGY ORDER RAGHAVENDRA Final Result [facility] [address] [place] [address], * HUMAN PAPILLOMA VIRUS (HPV) (08/25/2023 4:54 PM CDT) HPV TYPE 16 NEGATIVE NEGATIVE 08/27/2023 2:23 PM CDT [facility] Comment: A negative high-risk HPV result does not exclude the possibility of future cytologic HSIL or underlying CIN2-3 or cancer. The presence of PCR inhibitors may cause false negative or invalid results. If concentrations of whole blood in the sample exceed 1.5% (dark red or brown coloration) in PreservCyt solution, there is a likelihood of obtaining a false-negative result. HPV TYPE 18 NEGATIVE NEGATIVE 08/27/2023 2:23 PM CDT [facility] Comment: A negative high-risk HPV result does not exclude the possibility of future cytologic HSIL or underlying CIN2-3 or cancer. The presence of PCR inhibitors may cause false negative or invalid results. If concentrations of whole blood in the sample exceed 1.5% (dark red or brown coloration) in PreservCyt solution, there is a likelihood of obtaining a false-negative result. HPV OTHER HIGH RISK TYPES, PCR NEGATIVE NEGATIVE 08/27/2023 2:23 PM CDT [facility] Comment: The following Other High Risk types were not detected: 31, 33, 35, 39, 45, 51, 52, 56, 58, 59, 66, and 68. A negative high-risk HPV result does not exclude the possibility of future cytologic HSIL or underlying CIN2-3 or cancer. The presence of PCR inhibitors may cause false negative or invalid results. If concentrations of whole blood in the sample exceed 1.5% (dark red or brown coloration) in PreservCyt solution, there is a likelihood of obtaining a false-negative result. HPV ORDER BE USED FOR SCREENING OR DIAGNOSTIC SCREENING 08/27/2023 2:23 PM CDT [facility] Other Non-Phlebotomy Collection / Unknown 08/25/2023 4:54 PM CDT 08/25/2023 4:55 PM CDT [facility] - 08/27/2023 2:23 PM CDT Performed by Real-Time Polymerase Chain Reaction (PCR) on the Sujatha Adama 4800. This assay has been validated for use with post-aliquot samples from the [employer] processor. us Cinda Atkinson MEDIUM CYCLE SALESPERSON, COMMUNICATION ANALYST LAB SEND OUTS Final Re sult [facility] [address] [place] [address], [place] [facility] [address] [facility] [place] [address] from Last 3 Months or Most Recently Relevant to Health Maintenance Insurance [facility] Care Teams Tortilla Maker Relationship Specialty Start Date End Date Cinda Atkinson, MEDIUM CYCLE SALESPERSON, COMMUNICATION ANALYST [address] [place] [address] PCP - General Advanced Practice Nurse 06/27/23
--- OUTSIDE RECORDS SUMMARY | 2024-12-24 14:02 | XMS_ITS | Encounter Summary ---
Author Organization [facility] Address [address] [facility] [place] [address] Phone Care Team Providers Care Space And Missile Defense Operations Name Role Phone Ladi Love MD Primary Care Provider Cinda Atkinson APRN, [facility] Primary Care Provider + Reason for Visit * Reason Comments Medication Refill Encounter Details Date Type Department Care Team (Late st Contact Info) Description 04/16/2021 [facility]ill [facility] [address] [place] [address] [place] [address] [place] [address] Medication Refill Social History Tobacco Use Types Packs/Day Years Used Date Smoking Tobacco: Never Smokeless Tobacco: Never Alcohol Use Standard Drinks/Week Comments Yes 0 (1 standard drink = 0.6 oz pur e alcohol) PHQ-2 Answer Date Recorded Total Score - Questions 1-9 1 04/17 Sexually Active Control Partners Comments Yes Comments No Sex and Gender Information Value Date Recorded Sex Assigned at Female 04/25/2023 3:59 PM SEWER CONNECTOR Legal Sex Female 5:41 PM CDT Gender Identity Female 04/25/2023 3:59 PM SEWER CONNECTOR Sexual Orientation Not on file COVID-19 Exposure Response Date Recorded In the last month, have you been in contact with someone who was confirmed or suspected to have Coronavirus / COVID-19? No / Unsure 03/26/2021 10:00 PM SEWER CONNECTOR documented as of this encounter Miscellaneous Notes * Telephone Encounter - Magaly Mcqueen RN - 04/19/2021 1:49 PM CST Name from pharmacy: OMEPRAZOLE 20MG CAPSULES Will file in chart as: omeprazole (PriLOSEC) 20 MG CAPSULE DELAYED RELEASE The original prescription was reordered on 04/19/2021 by Ladi Love MD. R CONNECTOR * Telephone Encounter - Magaly Mcqueen RN - 04/19/2021 8:11 AM CST duplicate R CONNECTOR documented in this encounter Plan of Treatment Not on file documented as of this encounter Visit Diagnoses Not on filedocumented in this encounter Additional Health Concerns Assessment Noted Time PHQ-9 Depression Total Score: 1 04/29/19 21 12:00 PM SEWER CONNECTOR documented as of this encounter Care Teams Space And Missile Defense Operations Relationship Specialty Start Date End Date Ladi Love MD PCP - General Family Medicine 10/15/15 06/26/23 Cinda Atkinson, SENIOR ENVIRONMENTAL TECHNICIAN, MODEL AND DYE PERSON [address] [place] [address] PCP - General Advanced Practice Nurse 06/27/23 documented as of this encounter
--- OUTSIDE RECORDS SUMMARY | 2024-12-24 14:02 | XMS_ITS | Encounter Summary ---
Author Organization [facility] Address [address] [place] [address] Phone Care Team Providers Care Rehab Liaison Name Role Phone Cinda Atkinson APRN, BIOLOGY INTERN Primary Care Provider + Reason for Visit * Reason Comments Medication Refill Encounter Details Date Type Department Care Team (Late st Contact Info) Description 09/07/2023 [facility]ill [facility] [place] [address] [place] [address] Delmi Lopez APRN, BIOLOGY INTERN [address] [address] Medication Refill Social History Tobacco [...] Sex Assigned at Female 04/25/2023 3:59 PM SEARCH ENGINE OPTIMIZATION SPECIALIST Legal Sex Female 5:41 PM CDT Gender Identity Female 04/25/2023 3:59 PM SEARCH ENGINE OPTIMIZATION SPECIALIST Sexual Orientation Not on file documented as of this encounter Miscellaneous Notes * Telephone Encounter - Sarita Daniels RN - 09/07/2023 1:28 PM CDT Medication(s) refilled and signed per [facility] Chronic Medication Refill Standing Order for Pediatricand Adult Patients. Requested Prescriptions Pending Prescriptions Disp Refills omeprazole (PriLOSEC) 20 MG CAPSULE DELAYED RELEASE [Pharmacy Med Name: OMEPRAZOLE 20MG CAPSULES] 90 Capsule 0 Sig: Take 1 Capsule by mouth daily. Proton Pump Inhibitors Protocol Passed - 09/07/2023 12:46 PM Passed - No positive test in the past 12 months or most recent test was negative Passed - Visit with relevant provider in past 12 months or upcoming 90 days Recent Visits Date Type Provider Dept 08/25/23 Office Visit Cinda Atkinson APRN, JULES [facility] 06/27/23 Office Visit Cinda Atkinson APRN, JULES [facility] 09/21/22 Office Visit Akni Enrique APRN, BIOLOGY INTERN [facility] Showing recent visits within past 365 days and meeting all other requirements Future Appointments Date Type Provider Dept 09/13/23 Appointment Cinda Atkinson APRN, CNP [facility] 11/03/23 Appointment Cinda Atkinson APRN, JULES [facility] Showing future appointments within next 90 days and meeting all other requirements Passed - No active on record documented in this encounter Plan of Treatment Not on file documented as of this encounter Visit Diagnoses Not on filedocumented in this encounter Additional Health Concerns Assessment Noted Time PHQ-9 Depression Total Score: 1 04/29/19 21 12:00 PM SEARCH ENGINE OPTIMIZATION SPECIALIST documented as of this encounter Care Teams Rehab Liaison Relationship Specialty Start Date End Date Cinda Atkinson APRN, BIOLOGY INTERN [address] [place] [address] PCP - General Advanced Practice Nurse 06/27/23 documented as of this encounter
== END 2024-12-24 13:17 | disposition home or self-care (01) ==
PROVIDERS: Emergency Provider Nurse Practitioner
DX: J02.9 Acute pharyngitis, unspecified (principal); Z20.822 Contact with and (suspected) exposure to COVID-19; F17.290 Nicotine dependence, other tobacco product, uncomplicated; I10 Essential (primary) hypertension; K21.9 Gastro-esophageal reflux disease without esophagitis; M10.9 Gout, unspecified
CPT/HCPCS: 87081; 87426; 87804; 87880; 99213; G0463